=== PATIENT | female | born 1980 ===

== ENCOUNTER 2016-06-28 19:24 | Emergency (ER) | payer OTHER, MEDICAID ==
[2016-06-28 19:31] VITALS: BP 136/86; PULSE 88; RESP 18; TEMP 98.2; O2SAT 100
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
== END 2016-06-28 22:36 | disposition home or self-care (01) ==
LOC: H.ER 19:24
DX: M54.9 Dorsalgia, unspecified (principal); V43.52XA Car driver injured in collision with other type car in traffic accident, initial encounter; Y92.410 Unspecified street and highway as the place of occurrence of the external cause